=== PATIENT | female | born 1995 | race Caucasian/White ===

== ENCOUNTER 2020-10-27 02:32 | Emergency (ER) | payer BC, SELFPAY ==
[2020-10-27 02:38] VITALS: BP 136/89; PULSE 98; RESP 16; TEMP 36.7; O2SAT 99
--- NOTE | 2020-10-27 02:40 | ECG_ITS ---
Measurements Intervals [place] Rate: 71 P: 38 AK: 147 QRS: -5 QRSD: 82 T: 17 QT: 381 QTc: 417 Interpretive Statements SINUS RHYTHM POSSIBLE LEFT ATRIAL ENLARGEMENT INCOMPLETE RIGHT BUNDLE BRANCH BLOCK LOW QRS VOLTAGE IN PRECORDIAL LEADS BORDERLINE ECG Electronically Signed On 10-27-2020 6:31:27 BILL CLERK by Edwar Arauz D.O.
--- NOTE | 2020-10-27 03:05 | ED.GENADULT ---
HPI - General Adult General Chief complaint: Psychiatric Symptoms Stated complaint: depression/self harm Time Seen by Provider: 10/27/20 02:47 History of Present Illness HPI narrative: Is a 24-year-old female who presents the emergency department with chief complaint of depression. Patient states she has history of depression and history of PTSD reports that she has not been previously admitted last trying to harm her self by cutting approximately 1 year ago states that tonight she got an argument with her boyfriend and had thoughts of wanting to harm herself. Patient states those thoughts have subsequently gone away at this time and reports that she feels much better been under a lot of stress. Related Data Home Medications Medication Instructions Recorded Confirmed No Home Medications 10/27/20 10/27/20 Allergies Allergy/AdvReac Type Severity Reaction Status Date / Time No Known Allergies Allergy Verified 10/27/20 02:34 Review of Systems Review of Systems: Narrative: A 10 system review of systems was completed on the patient and is negative except for what is stated in the HPI. Nursing and ancillary documentation was reviewed. [facility] Social History Social History Gender identity (if verbalized by the patient): Female Sexual Orientation (if Verbalized by the Patient): Straight or Heterosexual Comments Past medical history significant for depression and PTSD Social history the patient denies drinking or illicit drug use Exam Narrative: Exam Narrative: GENERAL: Well-appearing, well-nourished, and in no acute distress. HEAD: Normocephalic, atraumatic. EYES: PERRLA and EOMI. ENT: Nares clear, no rhinorrhea or epistaxis. Mucous membranes moist. NECK: Supple. CHEST: Clear to auscultation. No respiratory distress. HEART: Regular rate and rhythm. No murmur heard. Normal peripheral pulses. ABDOMEN: Soft, nontender, nondistended, normal active bowel sounds. EXTREMITIES: Normal range of motion. No edema. SKIN: Warm, dry, no rash. NEURO: No focal deficits. Alert and oriented x3. PSYCH: Normal mood and affect. Course Course Emergency Course: Patient is medically cleared for psychiatric evaluation Vital Signs Vital signs: Vital Signs Temperature 36.7 C 10/27/20 02:38 Pulse Rate 98 10/27/20 02:38 Respiratory Rate 16 10/27/20 02:38 Blood Pressure 136/89 10/27/20 02:38 Pulse Oximetry 99 10/27/20 02:38 Temperature 36.7 C 10/27/20 02:38 Pulse Rate 107 H 10/27/20 05:49 Respiratory Rate 20 10/27/20 05:49 Blood Pressure 122/84 10/27/20 05:49 Pulse Oximetry 99 10/27/20 05:49 Medical Decision Making Vital Signs Vital Signs: Vital Signs Temperature 36.7 C 10/27/20 02:38 Pulse Rate 98 10/27/20 02:38 Respiratory Rate 16 10/27/20 02:38 Blood Pressure 136/89 10/27/20 02:38 Pulse Oximetry 99 10/27/20 02:38 Temperature 36.7 C 10/27/20 02:38 Pulse Rate 107 H 10/27/20 05:49 Respiratory Rate 20 10/27/20 05:49 Blood Pressure 122/84 10/27/20 05:49 Pulse Oximetry 99 10/27/20 05:49 Lab Data Result diagrams: 10/27/20 03:02 10/27/20 03:02 Labs: Lab Results 10/27/20 10/27/20 10/27/20 Range/Units 03:02 03:02 03:02 WBC 7.0 (4.5-10.0) K/mm3 RBC 4.76 (4.2-5.4) M/mm3 Hgb 15.2 H (12.0-15.0) g/dL Hct 42.4 (37.0-47.0) % MCV 89.1 (80-100) fl MCH 31.9 (26-34) pg MCHC 35.8 (32-36) g/dl RDW 12.4 (11.5-14.5) % Plt Count 371 (150-375) k/mm3 MPV 9.1 (7.4-10.4) fl Immature Gran % (Auto) 0.1 (0-0.5) % Neut % (Auto) 67.3 (45.5-73.1) % Lymph % (Auto) 24.6 (18.3-44.2) % [place] % (Auto) 7.6 (2.6-8.5) % Eos % (Auto) 0.3 (0-4.4) % Baso % (Auto) 0.1 L (0.2-1.2) % Lymph # (Auto) 1.72 (0.9-3.2) K/mm3 [place] # (Auto) 0.5 (0.1-0.6) K/mm3 Eos # (Auto) 0.0 (0-0.3) K/mm3 Baso # (Auto) 0.0 (0.0-0.1) K/mm3 Abs Immat Gran (auto) 0.01
[2020-10-27 03:13] LABS: Basophils Percent Auto 0.1 % (0.2-1.2); Eosinophils Percent Auto 0.3 % (0-4.4); Hematocrit 42.4 % (37.0-47.0); Hemoglobin 15.2 g/dL (12.0-15.0); Immature Granulocyte Absolute 0.01 K/mm3 (0.00-0.031); Immature Granulocyte Percent A 0.1 % (0-0.5); Lymphocytes Absolute Auto 1.72 K/mm3 (0.9-3.2); Lymphocytes Percent Auto 24.6 % (18.3-44.2); Mean Corpuscular HGB Conc 35.8 g/dl (32-36); Mean Corpuscular Hemoglobin 31.9 pg (26-34); Mean Corpuscular Volume 89.1 fl (80-100); Mean Platelet Volume 9.1 fl (7.4-10.4); Monocytes Absolute Auto 0.5 K/mm3 (0.1-0.6); Monocytes Percent Auto 7.6 % (2.6-8.5); Neutrophils Absolute Auto 4.7 K/mm3 (1.3-6.7); Neutrophils Percent Auto 67.3 % (45.5-73.1); Platelet Count Result 371 k/mm3 (150-375); Red Blood Count 4.76 M/mm3 (4.2-5.4); Red Cell Distribution Width 12.4 % (11.5-14.5)
[2020-10-27 03:19] LABS: Add Urine Microscopic? YES; Appearance Urine Cloudy (Clear); Bacteria Urine 4+ /hpf; Bilirubin Urine Negative (Negative); Blood Urine Negative (Negative); Color Urine Yellow (Yellow); Glucose Urine UA Negative (Negative); Ketones Urine Negative (Negative); Leukocyte Esterase Ur Negative LEU/UL (Negative); Mucus Urine Rare /lpf; Nitrate Urine Negative (Negative); Protein Urine Negative (Negative); Specific Grav Ur 1.013 (1.001-1.035); Squamous Epithelial Cell Urine Many /hpf (Few); Urobilinogen Urine Negative mg/dL (<2.0)
[2020-10-27 03:30] LABS: Acetaminophen < 10 ug/mL (10-30); Ethanol < 10 mg/dL (<10); Salicylate < 1.0 mg/dL (2-20)
[2020-10-27 03:31] LABS: Alanine Aminotransferase 19 U/L (4-35); Albumin Level 4.3 g/dL (3.5-5.1); Alkaline Phosphatase 51 U/L (38-126); Anion Gap 7 mmol/L (8-16); Aspartate Amino Transferase 20 U/L (14-36); Bilirubin,Total 0.6 mg/dL (0.2-1.3); Blood Urea Nitrogen 8 mg/dL (7-17); Calcium 9.2 mg/dL (8.4-10.2); Carbon Dioxide 27 mmol/L (22-30); Chloride 105 mmol/L (98-107); Estimated Glomerular Filt Rate > 60; Glucose 111 mg/dL (65-105); Potassium 3.7 mmol/L (3.4-5.0); Sodium 139 mmol/L (137-145)
[2020-10-27 03:43] LABS: Amphetamine Screen Urine Negative (Negative); Barbiturate Screen Urine Negative (Negative); Benzodiazepines Screen Urine Negative (Negative); Cannabinoid Screen Urine Negative (Negative); Cocaine Screen Urine Negative (Negative); Methadone Screen Urine Negative (Negative); Opiate Screen Urine Negative (Negative); Phencyclidine Screen Urine Negative (Negative)
--- NOTE | 2020-10-27 03:49 | PC.NURSE ---
called crisis , pending for assessment.
[2020-10-27 04:15] VITALS: BP 108/69; PULSE 83; RESP 18; O2SAT 100
--- NOTE | 2020-10-27 04:40 | PC.NURSE ---
crisis personnel-ryann @ beside
[2020-10-27 05:49] VITALS: BP 122/84; PULSE 107; RESP 20; O2SAT 99
== END 2020-10-27 06:11 | disposition home or self-care (01) ==
PROVIDERS: Emergency Provider Emergency Medicine
DX: F32.9 Major depressive disorder, single episode, unspecified (principal)
CPT/HCPCS: 36415; 80053; 80307; 81001; 81025; 84443; 85025; 93005; 99284